=== PATIENT | female | born 1960 | race Hispanic/Latino ===

== ENCOUNTER 2017-07-30 20:35 | Emergency (ER) | payer SELFPAY ==
[2017-07-30] MEDS ORDERED: ACETAMINOPHEN-CODEINE ELIXIR 5 ML UDCUP ONE (21:14)
== END 2017-07-30 22:09 | disposition home or self-care (01) ==
LOC: EDH 20:35
DX: R07.89 Other chest pain (principal); I10 Essential (primary) hypertension; K21.9 Gastro-esophageal reflux disease without esophagitis
CPT/HCPCS: 71045

== ENCOUNTER 2022-08-29 23:42 | Observation (INO) | payer BC ==
[~2022-08-29] VITALS: Ht 157.5 cm; Wt 64.5 kg
[2022-08-30 00:54] LABS: BASOPHILS % (AUTO) 0.8 % (0.0-5.0); HEMATOCRIT 29.8 % (36-48); LYMPHOCYTES % (AUTO) 29.9 % (21.0-51.0); MEAN CORPUSCULAR HEMOGLOBIN 32.6 pg (27.0-33.0); MEAN CORPUSCULAR HGB CONC 35.9 g/dL (32.0-36.0); MEAN CORPUSCULAR VOLUME 90.9 fL (79-99); MONOCYTES % (AUTO) 8.2 % (3.0-13.0); NEUTROPHILS % (AUTO) 58.9 % (40.0-77.0); PLATELET COUNT (AUTO) 246 K/uL (130-400); RED BLOOD CELL COUNT(AUTO) 3.28 MIL/uL (4.00-5.50); RED CELL DISTRIBUTION WIDTH 11.3 % (11.0-15.5); WHITE BLOOD COUNT (AUTO) 5.1 K/uL (4.8-10.8)
[2022-08-30 01:17] LABS: ALBUMIN 4.1 g/dL (3.5-5.0); TOTAL PROTEIN, SERUM 7.4 g/dL (6.0-8.3)
[2022-08-30 01:19] LABS: APPEARANCE,URINE CLEAR (CLEAR); BILIRUBIN,URINE NEGATIVE (NEGATIVE); COLOR,URINE LIGHT-YELLOW (YELLOW); GLUCOSE, URINE (UA) NEGATIVE (NEGATIVE); KETONES,URINE NEGATIVE (NEGATIVE); LEUKOCYTE ESTERASE ,URINE 75 Leu/uL (NEGATIVE); NITRATE,URINE NEGATIVE (NEGATIVE); OCCULT BLOOD,URINE NEGATIVE (NEGATIVE); PH,URINE 5.5 (5.0-8.0); PROTEIN,URINE NEGATIVE (NEGATIVE); UROBILINOGEN,URINE 0.2 mg/dL (0.2-1.0)
[2022-08-30 01:22] LABS: BACTERIA,URINE RARE /HPF (None Seen); MUCUS,URINE RARE LPF (None Seen); RBC,URINE 0-1 /HPF (0-1); SQUAMOUS EPITHELIAL CELL,UR RARE /HPF (0-2)
[2022-08-30] MEDS ORDERED: MECLIZINE HCL 25 MG TABLET PO ONE (01:30)
[2022-08-30] MEDS ORDERED: PROMETHAZINE HCL 25 MG TABLET PO SCH (01:30)
[2022-08-30] MEDS ORDERED: LABETALOL 20MG VIAL IV ONE (01:30)
[2022-08-30 07:45] VITALS: BP_SYST 136; BP_SYST 148; BP_SYST 166; BP_DIAS 83; BP_DIAS 84; BP_DIAS 93
[2022-08-30] MEDS ORDERED: LISI20TA24 PO (09:46)
[2022-08-30] MEDS ORDERED: FERR-82 PO (09:46)
[2022-08-30] MEDS ORDERED: **HM**VIT D3 50MCG PO SCH (10:00)
[2022-08-30] MEDS ORDERED: CHOL2000 PO (10:02)
[2022-08-30] MEDS: ACETAMINOPHEN 500 MG TABLET PO PRN ×2 (11:04→23:06)
[2022-08-30 12:00] VITALS: BP_SYST 133; BP_SYST 134; BP_DIAS 78; BP_DIAS 81
[2022-08-30 16:00] VITALS: BP_SYST 102; BP_SYST 117; BP_SYST 120; BP_DIAS 64; BP_DIAS 74; BP_DIAS 79
[2022-08-30 19:42] VITALS: BP 123/72
[2022-08-30 23:02] VITALS: BP 125/67
[2022-08-31 02:59] VITALS: BP 121/70
[2022-08-31 07:35] VITALS: BP 122/75
[2022-08-31] MEDS ORDERED: LISINOPRIL 20 MG TABLET PO SCH (09:00)
[2022-08-31] MEDS ORDERED: FERROUS SULFATE 325 MG TABLET.DR PO SCH (09:00)
[2022-08-31] MEDS ORDERED: 0.9%NACL 1000ML 1,000 ML IV SCH (10:30)
[2022-08-31 11:35] VITALS: BP 133/75
[2022-08-31 16:25] VITALS: BP 121/74
[2022-09-01] MEDS ORDERED: ATORVASTATIN 40 MG TABLET PO SCH (09:00)
[2022-09-01] MEDS ORDERED: ASPIRIN 81MG CHEW TAB PO SCH (09:00)
[2022-09-01] MEDS ORDERED: ASPIRIN 81 MG EC TAB PO SCH (09:00)
== END 2022-08-31 17:45 | disposition home or self-care (01) ==
LOC: EDH 23:42 → INTOOBSV 08-30 04:02 → EDHIP 08-30 04:02 → 4BH 08-30 07:45
PROVIDERS: ADMIT Internal Medicine; ATTEND Internal Medicine
DX: G45.9 Transient cerebral ischemic attack, unspecified (principal); Z20.822 Contact with and (suspected) exposure to COVID-19; I10 Essential (primary) hypertension; R26.89 Other abnormalities of gait and mobility; Z79.899 Other long term (current) drug therapy
CPT/HCPCS: 96374; 99285; 84484; 80053; 85025; 87088; 81001; 36415; 87635; 70450; 70551; 93005; 82948; 93306; 93880; 97161; 97116; C9803; Q0169; J3490; G0378 ×2

== ENCOUNTER 2024-04-18 21:44 | Emergency (ER) | payer SELFPAY ==
[~2024-04-18] VITALS: Ht 157.5 cm; Wt 70.8 kg
[~2024-04-18 21:44] MED LIST: CHOL2000 PO; FERR-82 PO; LISI20TA24 PO
[2024-04-18 21:57] VITALS: TEMP 98.2
[2024-04-18 22:04] LABS: BASOPHILS # (AUTO) 0.05 K/uL (0.00-0.20); BASOPHILS % (AUTO) 0.9 % (0.0-5.0); EOSINOPHILS # (AUTO) 0.19 K/uL (0.00-0.70); EOSINOPHILS % (AUTO) 3.4 % (0.0-8.0); HEMATOCRIT 29.9 % (36-48); IMMATURE GRANULOCYTE ABSOLUTE 0.02 K/uL (0-1); LYMPHOCYTES # (AUTO) 2.2 K/uL (1.0-4.8); LYMPHOCYTES % (AUTO) 38.8 % (21.0-51.0); MEAN CORPUSCULAR HEMOGLOBIN 33.1 pg (27.0-33.0); MEAN CORPUSCULAR HGB CONC 35.1 g/dL (32.0-36.0); MEAN CORPUSCULAR VOLUME 94.3 fL (79-99); MONOCYTES # (AUTO) 0.7 K/uL (0.1-1.0); MONOCYTES % (AUTO) 11.6 % (3.0-13.0); NEUTROPHILS # (AUTO) 2.6 K/uL (1.8-7.7); NEUTROPHILS % (AUTO) 44.9 % (40.0-77.0); PLATELET COUNT (AUTO) 269 K/uL (130-400); RED BLOOD CELL COUNT(AUTO) 3.17 MIL/uL (4.00-5.50); RED CELL DISTRIBUTION WIDTH 11.4 % (11.0-15.5); WHITE BLOOD COUNT (AUTO) 5.7 K/uL (4.8-10.8)
[2024-04-18 22:12] LABS: CREATININE 0.9 mg/dL (0.5-1.0); MAGNESIUM 1.6 mg/dL (1.80-2.40); POTASSIUM 3.6 mmol/L (3.5-5.1)
[2024-04-18 22:16] LABS: INR 0.94 (0.85-1.15); PROTHROMBIN TIME 10.2 SEC (9.6-11.6)
[2024-04-18 22:17] LABS: PARTIAL THROMBOPLASTIN TIME 25.6 SEC (26.3-35.5)
[2024-04-18] MEDS: dilTIAZem 25MG INJ IVP ONE (22:22)
[2024-04-18] MEDS: MAGNESIUM 2GM PREMIX 50ML 50 ML IV SCH (22:35)
[2024-04-18] MEDS ORDERED: CLON0.1T PO (23:51)
[2024-04-18 23:57] VITALS: BP 159/81; PULSE 66; RESP 16; O2SAT 98
== END 2024-04-18 23:58 | disposition home or self-care (01) ==
LOC: EDH 21:44
DX: I16.0 Hypertensive urgency (principal); D64.9 Anemia, unspecified; M06.9 Rheumatoid arthritis, unspecified; M35.00 Sjogren syndrome, unspecified; I10 Essential (primary) hypertension; Z79.899 Other long term (current) drug therapy
CPT/HCPCS: 99285; 96374; 70450; 71045; 96375; 83735; 84484; 80048; 85025; 85610; 85730; 36415; 93005; J3475; J3490